=== PATIENT | male | born 1965 | race Caucasian/White ===

== ENCOUNTER 2017-04-06 05:44 | Inpatient (IN) | payer BC ==
[~2017-04-06] VITALS: Ht 175.3 cm; Wt 92.9 kg
[~2017-04-06 05:44] MED LIST: METO1TAB55 PO
[2017-04-06] MEDS ORDERED: MoRPHine SULFATE 4 MG/ML 1 ML CARP\\VIAL IV STA (06:07)
[2017-04-06] MEDS ORDERED: ONDANSETRON INJ 2 MG/ML 2 ML VIAL IV STA (06:07)
[2017-04-06 06:15] LABS: BASO % 0.2 %; BASO ABS # 0.03 K/uL (0-0.2); COMPLETE YES; EOS % 0.5 %; HEMATOCRIT 46.4 % (42-52); IG% 0.4 %; LYMPH % 8.7 %; LYMPH ABS # 1.47 K/uL (1.2-3.4); MEAN CELL VOLUME 87.2 fL (80-100); MEAN CORPUSCULAR HEMOGLOBIN 32.1 pg (25-34); MEAN CORPUSCULAR HGB CONC 36.9 g/dl (32-36); MEAN PLATELET VOLUME 10.9 fL (7.4-10.4); MONO % 5.4 %; NEUT % 84.8 %; PLATELET COUNT 222 K/uL (130-400); RED BLOOD COUNT 5.32 M/uL (4.7-6.1); WHITE BLOOD COUNT 16.87 K/uL (4.8-10.8)
--- NOTE | 2017-04-06 06:31 | DIAGNOSTIC IMAGING REPORT ---
ABDOMEN 2VIEW W/PA CHEST RTN CLINICAL HISTORY: abd pain, ? SBO COMPARISON STUDY: 04/05/2017 FINDINGS: Several mildly distended small bowel in the proximal to mid abdomen. An unremarkable amount of gas and fecal material is identified within the colon. Lungs are clear. Diaphragms are smooth. IMPRESSION: Partial small bowel obstruction. The above report was generated using voice recognition software. It may contain grammatical, syntax or spelling errors. Electronically signed by: Dmitry Lozano M.D. 04/06/2017 6:30 AM Dictated Date/Time: 04/06/2017 6:29 AM
[2017-04-06] MEDS ORDERED: SODIUM CHLORIDE 0.9% 1000ML 1,000 ML IV STA ×2 (06:35)
[2017-04-06 06:47] LABS: ALKALINE PHOSPHATASE 78 U/L (45-117); ALT/SGPT 30 U/L (12-78); AST/SGOT 20 U/L (15-37); BLOOD UREA NITROGEN 16 mg/dl (7-18); BUN/CREATININE RATIO 13.3 (10-20); CALCIUM 9.8 mg/dl (8.5-10.1); CARBON DIOXIDE 26 mmol/L (21-32); CHLORIDE 107 mmol/L (98-107); CREATININE 1.23 mg/dl (0.60-1.40); GLUCOSE 124 mg/dl (70-99); POTASSIUM 3.8 mmol/L (3.5-5.1); SODIUM 142 mmol/L (136-145)
--- NOTE | 2017-04-06 07:20 | EMERGENCY ROOM VISIT NOTE ---
History First contact with patient: 06:07 Chief Complaint: VOMITING Stated Complaint: VOMITING Nursing Triage Summary: Pt reports seen here last night, feeling worse. Emesis x 3 in the last hour. Upper abd pain. History of Present Illness The patient is a 51 year old male who presents to the Emergency Room with complaints of worsening lower abdominal pain described as cramping, ranging in severity currently 9 out of 10. Nothing makes it better or worse. He's had an appendectomy before. He complains of nausea and vomiting. Patient denies chest pain, dyspnea, fever, chills, cough, congestion, back pain, urinary symptoms. No history of bowel obstruction in the past. He was seen here yesterday and had a CT scan that showed possible partial bowel obstruction versus ileus. He tried stool softeners with no improvement of symptoms. Review of Systems See HPI for pertinent positives & negatives. A total of 10 systems reviewed and were otherwise negative. Past Medical/Surgical History Medical Problems: (1) Fracture of mandible (2) HYPERTENSION NOS Appendectomy Social History Smoking Status: Never Smoker Alcohol Use: occasionally Marital Status: single Occupation Status: employed Current/Historical Medications Scheduled Metoclopramide Hcl (Reglan), 1 TAB PO QID Physical Exam Vital Signs Date Time Temp Pulse Resp B/P (MAP) Pulse Ox O2 Delivery O2 Flow Rate FiO2 04/06/17 06:16 Room Air 04/06/17 05:49 37.2 91 20 123/83 100 Room Air Physical Exam VITALS: Vitals are noted on the nurse's note and reviewed by myself. Vital signs stable. GENERAL: Pleasant male pacing in obvious pain, nondiaphoretic, well-developed well-nourished. SKIN: The skin was without rashes, erythema, edema, or bruising. There is no tenting of the skin. Capillary reflex less than 2 seconds. HEAD: Normocephalic atraumatic. EARS: External auditory canals clear, tympanic membranes pearly mercedes without erythema or effusion bilaterally. EYES: Pupils equal round and reactive to light and accommodation. Conjunctivae without injection, sclerae without icterus. Extraocular movements intact. NOSE: Patent, turbinates without inflammation or discharge. MOUTH: Mucous membranes moist. Pharynx without erythema or exudate. Uvula midline. Airway patent. Tongue does not deviate. NECK: Supple without nuchal rigidity. No lymphadenopathy. No thyromegaly. Cervical spine is nontender. No JVD. HEART: Regular rate and rhythm without murmurs gallops or rubs. LUNGS: Clear to auscultation bilaterally without wheezes, rales or rhonchi. No dullness to percussion. No retractions or accessory muscle use. ABDOMEN: Positive bowel sounds x 4. Normal tympanic percussion. Soft, tender to palpation lower abdomen, no CVA tenderness, without masses or organomegaly. Waite sign negative. No guarding or rebound tenderness. MUSCULOSKELETAL: No muscle atrophy, erythema, or edema noted. NEURO: Patient was alert and oriented to person place and time. Normal sensation to light and sharp touch. No focal neurological deficits. Medical Decision & Procedures Laboratory Results 04/06/17 06:00 Red Blood Count 5.32, Mean Corpuscular Volume 87.2, Mean Corpuscular Hemoglobin 32.1, Mean Corpuscular Hemoglobin Concent 36.9, Mean Platelet Volume 10.9, Neutrophils (%) (Auto) 84.8, Lymphocytes (%) (Auto) 8.7, Monocytes (%) (Auto) 5.4, Eosinophils (%) (Auto) 0.5, Basophils (%) (Auto) 0.2, Neutrophils # (Auto) 14.32, Lymphocytes # (Auto) 1.47, Monocytes # (Auto) 0.91, Eosinophils # (Auto) 0.08, Basophils # (Auto) 0.03 04/06/17 06:00 Test 04/06/17 06:00 White Blood Count 16.87 K/uL (4.8-10.8) Red Blood Count 5.32 M/uL (4.7-6.1) Hemoglobin 17.1 g/dL (14.0-18.0) Hematocrit 46.4 % (42-52) Mean Corpuscular Volume 87.2 fL (80-100) Mean Corpuscular Hemoglobin 32.1 pg (25-34) Mean Corpuscular Hemoglobin Concent 36.9 g/dl (32-36) Platelet Count 222 K/uL (130-400) Mean Platelet Volume 10.9 fL (7.4-10.4) Neutrophils (%) (Auto) 84.8 % Lymphocytes (%) (Auto) 8.7 % Monocytes (%) (Auto) 5.4 % Eosinophils (%) (Auto) 0.5 % Basophils (%) (Auto) 0.2 % Neutrophils # (Auto) 14.32 K/uL (1.4-6.5) Lymphocytes # (Auto) 1.47 K/uL (1.2-3.4) Monocytes # (Auto) 0.91 K/uL (0.11-0.59) Eosinophils # (Auto) 0.08 K/uL (0-0.5) Basophils # (Auto) 0.03 K/uL (0-0.2) RDW Standard Deviation 39.8 fL (36.4-46.3) RDW Coefficient of Variation 12.5 % (11.5-14.5) Immature Granulocyte % (Auto) 0.4 % Immature Granulocyte # (Auto) 0.06 K/uL (0.00-0.02) Anion Gap 9.0 mmol/L (3-11) Est Creatinine Clear Calc Drug Dose 79.1 ml/min Estimated GFR () 77.7 Estimated GFR (Non- 67.1 BUN/Creatinine Ratio 13.3 (10-20) Calcium Level 9.8 mg/dl (8.5-10.1) Total Bilirubin 0.9 mg/dl (0.2-1) Direct Bilirubin mg/dl (0-0.2) Aspartate Amino Transf (AST/SGOT) 20 U/L (15-37) Alanine Aminotransferase (ALT/SGPT) 30 U/L (12-78) Alkaline Phosphatase 78 U/L (45-117) Total Protein 7.8 gm/dl (6.4-8.2) Albumin 4.0 gm/dl (3.4-5.0) Lipase 151 U/L (73-393) Medications Administered Medications (Trade) Dose Ordered Sig/Sadie Route Start Time Stop Time Status Last Admin Dose Admin Morphine Sulfate (MoRPHine SULFATE INJ) 4 mg NOW STAT IV 04/06/17 06:07 04/06/17 06:08 DC 04/06/17 06:21 4 MG Ondansetron HCl (Zofran Inj) 4 mg NOW STAT IV 04/06/17 06:07 04/06/17 06:08 DC 04/06/17 06:21 4 MG Sodium Chloride 1,000 ml @ 999 mls/hr Q1H1M STAT IV 04/06/17 06:35 04/06/17 07:35 04/06/17 06:44 999 MLS/HR ED Course Prior records/ancillary studies reviewed. Triage Nursing notes reviewed. Additional history obtained from family The patient's history was concerning for abdominal pain. Differential diagnosis: Etiologies such as appendicitis, diverticulitis, PUD, biliary pathology, UTI, pancreatitis, obstruction, mesenteric ischemia, aortic pathology, infections, inflammatory bowel disease, renal colic, as well as others were entertained. Physical examination findings: As above. ER treatment provided: Morphine, Zofran, IV fluids On reassessment the patient felt better. Diagnostics interpreted by me: The labs revealed leukocytosis, stable H&H Imaging studies: COMPARISON STUDY: 01/18/2013 FINDINGS: Lung bases are clear. Liver spleen and pancreas are unremarkable. Gallbladder is negative for distention. The adrenal glands are normal. Kidneys are negative for calcification or significant hydronephrosis. There is slight prominence of the left renal pelvis. There is a 1.5 mm nonobstructing calcification lower aspect left kidney. There is no evidence for an obstructing urinary tract calculus. Several fluid-filled loops of small bowel are present suggesting ileus versus partial small bowel obstruction. Patient is status post prior appendectomy. A sending transverse colon as are unremarkable. Descending colon shows evidence for a component of chronic diverticulosis. There is no evidence for acute diverticulitis. Bladder is midline. There multiple pelvic vascular calcifications. IMPRESSION: 1. No evidence for an obstructing urinary tract calculus. 2. Small punctate nonobstructing lower pole left renal calcification. 3. Moderate small bowel ileus versus the less likely possibility of a partial small bowel obstructive pattern. 4. Chronic descending and to lesser extent sigmoid diverticulosis. The small bowel ileus potentially is reactive based on this finding. 5. No evidence for abscess or collection. 6. Prior appendectomy. The above report was generated using voice recognition software. It may contain grammatical, syntax or spelling errors. ABDOMEN 2VIEW W/PA CHEST RTN CLINICAL HISTORY: abd pain, ? SBO COMPARISON STUDY: 04/05/2017 FINDINGS: Several mildly distended small bowel in the proximal to mid abdomen. An unremarkable amount of gas and fecal material is identified within the colon. Lungs are clear. Diaphragms are smooth. IMPRESSION: Partial small bowel obstruction. Electronically signed by: Dmitry Lozano M.D. Consultation: A consultation was placed with the surgeon, Dr. Rivera and recommends medical admission and he will be consulted. I spoke to the [facility] hospitalist, Dr. Griffin. The case was discussed and diagnostics were reviewed. The patient was evaluated in the ER for further treatment. Exam and history seem consistent with small bowel obstruction. Patient had a CT scan yesterday and was sent home. Stool softeners made symptoms worsen and came back. Acute abdominal series is concerning for partial small bowel obstruction. Medicine will evaluate the patient for possible admission. Surgery was consulted. By the evaluation outlined above emergent etiologies such as appendicitis, diverticulitis, PUD, biliary pathology, UTI, pancreatitis, mesenteric ischemia , aortic pathology, infections, inflammatory bowel disease, renal colic, as well as others were deemed relatively unlikely. The pt informed about the findings as listed above. All questions were answered and pleased with the treatment. Case reviewed with my attending. Medical Decision As above Medication Reconcilliation Current Medication List: was personally reviewed by me Blood Pressure Screening Patient's blood pressure: Normal blood pressure Impression Primary Impression: Small bowel obstruction Departure Information Dispostion Being Evaluated By Hospitalist Condition GOOD Referrals Eladio Skelton M.D. (PCP) Patient Instructions My [facility]
[2017-04-06] MEDS ORDERED: MoRPHine SULFATE 2 MG/ML CARP IV PRN (07:30)
[2017-04-06] MEDS ORDERED: ONDANSETRON INJ 2 MG/ML 2 ML VIAL IV PRN (07:30)
[2017-04-06 07:35] VITALS: O2SAT 100; Ht 175.3 cm; Wt 92.9 kg
[2017-04-06 08:12] VITALS: O2SAT 98
[2017-04-06 08:24] VITALS: BP 126/82; PULSE 78; TEMP 36.4; O2SAT 94
--- NOTE | 2017-04-06 08:44 | History and Physical ---
History & Physical Date & Time of Service: Apr 06, 2017 at 08:41 Chief Complaint: Partial Small Bowel Obstruction Primary Care Physician: Eladio Skelton M.D. History of Present Illness Patient returns to the ER after attempts of using laxatives at home to relieve his partial small bowel obstruction, one day prior to admission he presented with abdominal pain nausea he had a CT scan and plain x-ray are consistent with an ileus versus partial small bowel obstruction he was sent home with promotility agents and laxatives. The patient had voluminous dark emesis and increased abdominal pain he self admits to drinking large amounts of water. He re-presents to the ER is recommended for intake. He does have a history of previously having an appendectomy. His lab abnormalities only include a leukocytosis. His is at the bedside and understands need for addition Past Medical/Surgical History Medical Problems: (1) Fracture of mandible Status: Resolved (2) HYPERTENSION NOS Status: Chronic Social History Smoking Status: Never Smoker Smokeless Tobacco Use: No Alcohol Use: socially Marital Status: single Occupational Status: employed Immunizations History of Influenza Vaccine: Yes History of Tetanus Vaccine?: Yes History of Pneumococcal: No History of Hepatitis B Vaccine: No Allergies Coded Allergies: Amoxicillin (Unverified Allergy, Unknown, HIVES, 04/05/17) Home Medications Scheduled Metoclopramide Hcl (Reglan), 1 TAB PO QID Review of Systems ROS: well nourished well developed No double vision blurry vision No problems with speech or swallowing No palpitations, chest pain or pressure No Wheezing or breathing issues Central abdominal pain plus nausea vomiting (black liquid) but no diarrhea and no changes in appetite or weight No burning urine urine frequency or changes in color No focal joint pain or muscle pain but history of arthritis No skin rashes or oral lesions No unusual bruising or bleeding No focused back pain or numbness or loss of strength No changes in memory or confusion Physical Exam Vital Signs Date Time Temp Pulse Resp B/P (MAP) Pulse Ox O2 Delivery O2 Flow Rate FiO2 04/06/17 08:12 82 16 135/79 98 04/06/17 07:46 95 Nasal Cannula 2.0 04/06/17 07:35 100 Room Air 04/06/17 07:14 83 16 128/77 89 Room Air 04/06/17 06:16 Room Air 04/06/17 05:49 37.2 91 20 123/83 100 Room Air General Appearance: WD/WN, + mild distress Head: normocephalic, atraumatic Eyes: PERRL, EOMI Respiratory/Chest: chest non-tender, lungs clear, normal breath sounds Cardiovascular: regular rate, rhythm, normal peripheral pulses Abdomen/GI: soft, + abnormal bowel sounds (hypoactive), + distended, + guarding Back: no CVA tenderness, no muscle spasm Extremities/Musculoskelatal: no pedal edema, normal range of motion Neurologic/Psych: alert, oriented x 3 Skin: normal color, warm/dry, no rash Diagnostics Laboratory Results Results Past 24 Hours Test 04/06/17 06:00 Range/Units White Blood Count 16.87 4.8-10.8 K/uL Red Blood Count 5.32 4.7-6.1 M/uL Hemoglobin 17.1 14.0-18.0 g/dL Hematocrit 46.4 42-52 % Mean Corpuscular Volume 87.2 80-100 fL Mean Corpuscular Hemoglobin 32.1 25-34 pg Mean Corpuscular Hemoglobin Concent 36.9 32-36 g/dl Platelet Count 222 130-400 K/uL Mean Platelet Volume 10.9 7.4-10.4 fL Neutrophils (%) (Auto) 84.8 % Lymphocytes (%) (Auto) 8.7 % Monocytes (%) (Auto) 5.4 % Eosinophils (%) (Auto) 0.5 % Basophils (%) (Auto) 0.2 % Neutrophils # (Auto) 14.32 1.4-6.5 K/uL Lymphocytes # (Auto) 1.47 1.2-3.4 K/uL Monocytes # (Auto) 0.91 0.11-0.59 K/uL Eosinophils # (Auto) 0.08 0-0.5 K/uL Basophils # (Auto) 0.03 0-0.2 K/uL RDW Standard Deviation 39.8 36.4-46.3 fL RDW Coefficient of Variation 12.5 11.5-14.5 % Immature Granulocyte % (Auto) 0.4 % Immature Granulocyte # (Auto) 0.06 0.00-0.02 K/uL Sodium Level 142 136-145 mmol/L Potassium Level 3.8 3.5-5.1 mmol/L Chloride Level 107 98-107 mmol/L Carbon Dioxide Level 26 21-32 mmol/L Anion Gap 9.0 3-11 mmol/L Blood Urea Nitrogen 16 7-18 mg/dl Creatinine 1.23 0.60-1.40 mg/dl Est Creatinine Clear Calc Drug Dose 79.1 ml/min Estimated GFR () 77.7 Estimated GFR (Non- 67.1 BUN/Creatinine Ratio 13.3 10-20 Random Glucose 124 70-99 mg/dl Calcium Level 9.8 8.5-10.1 mg/dl Total Bilirubin 0.9 0.2-1 mg/dl Direct Bilirubin 0-0.2 mg/dl Aspartate Amino Transf (AST/SGOT) 20 15-37 U/L Alanine Aminotransferase (ALT/SGPT) 30 12-78 U/L Alkaline Phosphatase 78 45-117 U/L Total Protein 7.8 6.4-8.2 gm/dl Albumin 4.0 3.4-5.0 gm/dl Lipase 151 73-393 U/L Diagnostic Radiology Abdominal x-ray consistent with ileus versus partial small bowel obstruction Impression Assessment and Plan 51-year-old male with previous history of appendectomy presents with partial small bowel structure failing conservative therapy Admission for bowel rest hydration pain and nausea control surgical consultation With description of black emesis will place on Protonix IV With leukocytosis will place on cefoxitin DVD preventions heparin Advanced Directives Existing Living Will: No Existing Power of Nut Dehydrator Operator: No VTE Prophylaxis VTE Risk Assessment Done? Y/N: Yes Risk Level: Moderate
[2017-04-06] MEDS ORDERED: CEFOXITIN IV 1,000 MG in DEXTROSE 5% 50ML 50 ML IV SCH (10:00)
[2017-04-06 10:04] LABS: PROTHROMBIN TIME (PATIENT) 10.9 SECONDS (9.0-12.0)
[2017-04-06] MEDS: NSS + 20MEQ KCL 1000ML 1,000 ML IV SCH ×3 (10:11→23:41)
[2017-04-06] MEDS: PANTOprazole INJ 40 MG in SYRINGE 0 ML IV SCH ×2 (10:12→20:31)
[2017-04-06] MEDS: MoRPHine SULFATE 4 MG/ML 1 ML CARP\\VIAL IV PRN ×2 (10:16→14:33)
[2017-04-06] MEDS: HEPARIN SOD 5000 UNIT/0.5 ML CARP SQ SCH ×2 (10:20→20:32)
[2017-04-06] MEDS: METRONIDAZOLE / NSS 500 MG in PREMIXED NSS 100 ML IV SCH ×2 (10:37→18:19)
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
[2017-04-06] MEDS: CIPROFLOXACIN / D5W 400 MG in PREMIXED IN D5W 200 ML IV SCH ×2 (11:12→22:30)
[2017-04-06 15:49] VITALS: BP 114/74; PULSE 70; TEMP 36.8; O2SAT 94
[2017-04-06 22:53] VITALS: BP 116/78; PULSE 77; TEMP 36.8; O2SAT 93
[2017-04-07] MEDS: METRONIDAZOLE / NSS 500 MG in PREMIXED NSS 100 ML IV SCH ×2 (01:49→09:33)
[2017-04-07 06:15] LABS: BUN/CREATININE RATIO 11.9 (10-20); CALCIUM 8.1 mg/dl (8.5-10.1); CREATININE 1.03 mg/dl (0.60-1.40); MAGNESIUM 1.8 mg/dl (1.8-2.4); POTASSIUM 3.9 mmol/L (3.5-5.1)
[2017-04-07 07:03] VITALS: BP 114/73; PULSE 75; TEMP 36.6; O2SAT 95
[2017-04-07 07:33] LABS: HEMATOCRIT 38.3 % (42-52); MEAN CELL VOLUME 88.2 fL (80-100); MEAN CORPUSCULAR HEMOGLOBIN 30.9 pg (25-34); MEAN PLATELET VOLUME 11.2 fL (7.4-10.4); PLATELET COUNT 180 K/uL (130-400); RED BLOOD COUNT 4.34 M/uL (4.7-6.1); WHITE BLOOD COUNT 6.69 K/uL (4.8-10.8)
--- NOTE | 2017-04-07 09:27 | DIAGNOSTIC IMAGING REPORT ---
ABDOMEN 2 VIEWS CLINICAL HISTORY: Abdominal pain. Small bowel obstruction. COMPARISON STUDY: 04/06/2017 FINDINGS: There are multiple dilated central abdominal small bowel loops measuring up to 49 mm in diameter. There are air-fluid levels on the erect study. There is a possibility of colonic gas. The findings are consistent with a small bowel obstruction. IMPRESSION: Persistent small bowel obstructive pattern Electronically signed by: Michael Garrison M.D. 04/07/2017 9:26 AM Dictated Date/Time: 04/07/2017 9:25 AM
[2017-04-07] MEDS: PANTOprazole INJ 40 MG in SYRINGE 0 ML IV SCH (09:32)
[2017-04-07] MEDS: NSS + 20MEQ KCL 1000ML 1,000 ML IV SCH (09:33)
[2017-04-07] MEDS: HEPARIN SOD 5000 UNIT/0.5 ML CARP SQ SCH (09:40)
[2017-04-07] MEDS ORDERED: ACETAMINOPHEN IV 650 MG in EMPTY BAG 0 ML IV PRN (09:45)
--- NOTE | 2017-04-07 10:08 | Surgery Progress Note ---
Surgery Progress Note Date of Service Apr 07, 2017. Subjective + pain controlled, No complaints, No bowel movement, No nausea, No vomiting Patient sitting up in bed with spouse at bedside. No concerns overnight. Mild headache this AM. Objective Vital Signs: Date Time Temp Pulse Resp B/P (MAP) Pulse Ox O2 Delivery O2 Flow Rate FiO2 04/07/17 08:00 Room Air 04/07/17 07:03 36.6 75 19 114/73 (87) 95 Room Air 04/06/17 23:54 Room Air 04/06/17 22:53 36.8 77 16 116/78 (91) 93 Room Air 04/06/17 15:49 36.8 70 18 114/74 (87) 94 Room Air 04/06/17 15:20 Room Air General Appearance: WD/WN, no apparent distress Head: normocephalic, atraumatic Abdomen: non tender, soft, + pertinent finding Laboratory Results: Results Past 24 Hours Test 04/07/17 05:26 Range/Units White Blood Count 6.69 4.8-10.8 K/uL Red Blood Count 4.34 4.7-6.1 M/uL Hemoglobin 13.4 14.0-18.0 g/dL Hematocrit 38.3 42-52 % Mean Corpuscular Volume 88.2 80-100 fL Mean Corpuscular Hemoglobin 30.9 25-34 pg Mean Corpuscular Hemoglobin Concent 35.0 32-36 g/dl RDW Standard Deviation 39.3 36.4-46.3 fL RDW Coefficient of Variation 12.3 11.5-14.5 % Platelet Count 180 130-400 K/uL Mean Platelet Volume 11.2 7.4-10.4 fL Sodium Level 142 136-145 mmol/L Potassium Level 3.9 3.5-5.1 mmol/L Chloride Level 109 98-107 mmol/L Carbon Dioxide Level 28 21-32 mmol/L Anion Gap 5.0 3-11 mmol/L Blood Urea Nitrogen 12 7-18 mg/dl Creatinine 1.03 0.60-1.40 mg/dl Est Creatinine Clear Calc Drug Dose 94.5 ml/min Estimated GFR () 96.3 Estimated GFR (Non- 83.1 BUN/Creatinine Ratio 11.9 10-20 Random Glucose 92 70-99 mg/dl Calcium Level 8.1 8.5-10.1 mg/dl Magnesium Level 1.8 1.8-2.4 mg/dl ABDOMEN 2 VIEWS CLINICAL HISTORY: Abdominal pain. Small bowel obstruction. COMPARISON STUDY: 04/06/2017 FINDINGS: There are multiple dilated central abdominal small bowel loops measuring up to 49 mm in diameter. There are air-fluid levels on the erect study. There is a possibility of colonic gas. The findings are consistent with a small bowel obstruction. IMPRESSION: Persistent small bowel obstructive pattern Electronically signed by: Michael Garrison M.D. 04/07/2017 9:26 AM Dictated Date/Time: 04/07/2017 9:25 AM Assessment & Plan 51-year-old male with small bowel obstruction Reviewed abdominal x-ray from this AM. Patient reports that he is feeling better since admission. Pain controlled. Diet advanced to full liquids- tolerating well, no nausea or vomiting. Will continue to follow along.
--- NOTE | 2017-04-07 10:36 | Hospitalist Progress Note ---
Hospitalist Progress Note Date of Service Apr 07, 2017. Subjective Pt evaluation today including: conversation w/ patient, physical exam, chart review, lab review, review of studies, review of inpatient medication list Voiding: no voiding problems Mr. Bal feels much better this morning. He has not had any nausea or vomiting today and tolerating full liquids this morning. He also had a bowel movement this morning. He does have some left upper quadrant tenderness. Constitutional: no chills, aches, sweats or fever Respiratory: no sob,cough, sputum, or wheezing Cardiac: no chest pain, palpitations, edema, orthopnea or lightheadedness GI: see HPI : no dysuria or hesitancy Extremities: no joint pain or weakness Skin: no rash All Other Systems: Reviewed and Negative Medications Medications Administered Medications (Trade) Dose Ordered Sig/Sadie Route Start Time Stop Time Status Last Admin Dose Admin Morphine Sulfate (MoRPHine SULFATE INJ) 4 mg NOW STAT IV 04/06/17 06:07 04/06/17 06:08 DC 04/06/17 06:21 4 MG Ondansetron HCl (Zofran Inj) 4 mg NOW STAT IV 04/06/17 06:07 04/06/17 06:08 DC 04/06/17 06:21 4 MG Sodium Chloride 1,000 ml @ 999 mls/hr Q1H1M STAT IV 04/06/17 06:35 04/06/17 07:35 DC 04/06/17 06:44 999 MLS/HR Heparin Sodium (Porcine) (Heparin Sq 5000 Unit/0.5ml) 5,000 unit Q12@0900,2100 SQ 04/06/17 10:00 05/06/17 09:59 04/07/17 09:40 5,000 UNIT Potassium Chloride/Sodium Chloride 1,000 ml @ 100 mls/hr Q10H IV 04/06/17 10:00 05/06/17 07:29 04/07/17 09:33 100 MLS/HR Morphine Sulfate (MoRPHine SULFATE INJ) 4 mg Q4H PRN IV 04/06/17 07:30 04/20/17 07:29 04/06/17 14:33 4 MG Pantoprazole Sodium 40 mg/ Syringe 10 ml @ 5 mls/min Q12@0900,2100 IV 04/06/17 10:00 05/06/17 09:59 04/07/17 09:32 5 MLS/MIN Ciprofloxacin/ Dextrose 400 mg/ Prmx 200 ml @ 100 mls/hr Q12H IV 04/06/17 11:00 04/16/17 10:59 04/06/17 22:30 100 MLS/HR Metronidazole 500 mg/Prmx 100 ml @ 100 mls/hr Q8H IV 04/06/17 10:00 04/16/17 09:59 04/07/17 09:33 100 MLS/HR Objective Vital Signs Date Time Temp Pulse Resp B/P (MAP) Pulse Ox O2 Delivery O2 Flow Rate FiO2 04/07/17 08:00 Room Air 04/07/17 07:03 36.6 75 19 114/73 (87) 95 Room Air 04/06/17 23:54 Room Air 04/06/17 22:53 36.8 77 16 116/78 (91) 93 Room Air 04/06/17 15:49 36.8 70 18 114/74 (87) 94 Room Air 04/06/17 15:20 Room Air Physical Exam Notes: General: no distress Eyes: normal inspection, PERLL Respiratory: chest non tender, clear to auscultation, normal breath sounds, no respiratory distress, no accessory muscle use Cardiac: regular rate and rhythm, no rub or gallop, no murmur, no edema, no jvd GI/: active bowel sounds,LUQ tender to palpation, soft, non distended Extremities: normal range of motion, normal strength, non tender Neuro/Psych: drowsy and oriented x 3, normal mood and affect Skin: normal color, dry Laboratory Results Last 24 Hours Test 04/07/17 05:26 White Blood Count 6.69 K/uL Red Blood Count 4.34 M/uL Hemoglobin 13.4 g/dL Hematocrit 38.3 % Mean Corpuscular Volume 88.2 fL Mean Corpuscular Hemoglobin 30.9 pg Mean Corpuscular Hemoglobin Concent 35.0 g/dl RDW Standard Deviation 39.3 fL RDW Coefficient of Variation 12.3 % Platelet Count 180 K/uL Mean Platelet Volume 11.2 fL Sodium Level 142 mmol/L Potassium Level 3.9 mmol/L Chloride Level 109 mmol/L Carbon Dioxide Level 28 mmol/L Anion Gap 5.0 mmol/L Blood Urea Nitrogen 12 mg/dl Creatinine 1.03 mg/dl Est Creatinine Clear Calc Drug Dose 94.5 ml/min Estimated GFR () 96.3 Estimated GFR (Non- 83.1 BUN/Creatinine Ratio 11.9 Random Glucose 92 mg/dl Calcium Level 8.1 mg/dl Magnesium Level 1.8 mg/dl Assessment and Plan 51-year-old male with previous history of appendectomy presents with partial small bowel obstruction failing conservative therapy SBO - diet advanced per surgery to full liquid - tolerating well - Abd x ray today shows continued SBO upper left quadrant Leukocytosis - ? diverticulitis - per surgery presentation is consistent with - continue abx With description of black emesis will place on Protonix IV DVD preventions heparin
[2017-04-07] MEDS: CIPROFLOXACIN / D5W 400 MG in PREMIXED IN D5W 200 ML IV SCH (11:54)
[2017-04-07] MEDS ORDERED: METR500T PO (14:00)
[2017-04-07] MEDS ORDERED: CPR500 PO (14:00)
--- NOTE | 2017-04-07 14:15 | Discharge Instructions ---
Discharge Instructions Date of Service Apr 07, 2017. Admission Reason for Admission: Partial Small Bowel Obstruction Discharge Discharge Diagnosis / Problem: Partial small bowel obstruction, diverticulitis Discharge Goals Goal(s): Decrease discomfort, Improve disease control Activity Recommendations Activity Limitations: resume your previous activity Driving or Machine Use: no limitations . Instructions / Follow-Up Instructions / Follow-Up Please follow up with Cesia Oliva PA-C on April 14 at 1:30 Please get lab work on 04/09, results to Cesia Oliva Current Hospital Diet Patient's current hospital diet: Full Liquid Diet Discharge Diet Recommended Diet: Full Liquid Diet (Advance to low fiber/low fat diet as tolerated. ) Procedures Procedures Performed: Abdomen/chest xray Chest x ray Pending Studies Studies pending at discharge: no Medical Emergencies . Who to Call and When: Medical Emergencies: If at any time you feel your situation is an emergency, please call 911 immediately. . Non-Emergent Contact Non-Emergency issues call your: Primary Care Provider Call Non-Emergent contact if: you have a fever, your pain is not controlled, your pain is worsening . Past History Medical & Surgical History: (1) Small bowel obstruction (2) Diverticulitis . "Provider Documentation" section prepared by Viviana Skelton. . VTE Core Measure Inpt VTE Proph given/why not?: Treatment not indicated
--- NOTE | 2017-04-07 14:29 | Discharge Summary ---
Discharge Summary Date of Service Apr 07, 2017. (Viviana Skelton CRNP) Discharge Summary Admission Date: Apr 06, 2017 at 07:33 Discharge Date: Apr 07, 2017 Discharge Disposition: Home Principal Diagnosis: Partial small bowel obstruction, diverticulitis Immunizations: Have You Had Influenza Vaccine: Yes History of Tetanus Vaccine?: Yes History of Pneumococcal: No History of Hepatitis B Vaccine: No Procedures: 2 view abdomen IMPRESSION: Persistent small bowel obstructive pattern Chest/abdomen x ray IMPRESSION: Partial small bowel obstruction. Consultations: Dr. Rivera from Gen Surg (Viviana Skelton CRNP) Medication Reconciliation New Medications: Ciprofloxacin (Ciprofloxacin HCl) 500 Mg Tab 500 MG PO BID for 6 Days, #11 DOSE Metronidazole (Flagyl) 500 Mg Tab 500 MG PO TID for 6 Days, #19 TAB Pantoprazole (Protonix) 40 Mg Tab 40 MG PO DAILY, #30 TAB Discontinued Medications: Metoclopramide Hcl (Reglan) 10 Mg Tab 1 TAB PO QID for 30 Days, #120 TAB Discharge Exam ROS Constitutional: no chills, aches, sweats or fever Respiratory: no sob,cough, sputum, or wheezing Cardiac: no chest pain, palpitations, edema, orthopnea or lightheadedness GI: no abdominal pain, nausea, vomiting, diarrhea or constipation : no dysuria or hesitancy Extremities: no joint pain or weakness Skin: no rash PE General: no distress Eyes: normal inspection, PERLL Respiratory: chest non tender, clear to auscultation, normal breath sounds, no respiratory distress, no accessory muscle use Cardiac: regular rate and rhythm, no rub or gallop, no murmur, no edema, no jvd GI/: active bowel sounds,mild tenderness left upper quadrant, soft, non distended Extremities: normal range of motion, normal strength, non tender Neuro/Psych: alert and oriented x 3, normal mood and affect Skin: normal color, dry (Vviiana Skelton CRNP) Hospital Course Patient returned to the ER 04/06 after attempts of using laxatives at home to relieve his partial small bowel obstruction, one day prior to admission he had presented to the ED with abdominal pain and nausea. He had a CT scan and plain x-ray consistent with an ileus versus partial small bowel obstruction and he was sent home with promotility agents and laxatives. The patient had voluminous dark emesis and increased abdominal pain. He admitted to drinking large amounts of water. He does have a history of previously having an appendectomy. His lab abnormalities only include a leukocytosis. SBO - diet advanced per surgery to full liquid - tolerated well - to discharge home with instruction to advance diet to low fiber/low fat as tolerated until seen by primary care - Abd x ray 04/06 showed continued SBO upper left quadrant Leukocytosis - ? diverticulitis - per surgery presentation is consistent with though his imaging did not clearly show - will discharge with cipro and flagyl for a total of a 7 day course With description of black emesis he received Protonix IV - discharged with po protonix 40 mg daily DVD preventions heparin Total Time Spent: Less than 30 minutes This includes examination of the patient, discharge planning, medication reconciliation, and communication with other providers. (Viviana Skelton CRNP) MONUMENTAL [employer]ONEM[employer] Physician Supervision Note: I interviewed and examined the patient. Discussed with Viviana Skelton MONUMENTAL STONEMASON and agree with findings and plan as documented in the note. Any exceptions or clarifications are listed here: None Patient has improved dramatically overnight feel to tolerate food no pain and had a bowel movement Vital signs are stable abdominal exam is only with very minor discomfort mostly in the left side of his abdomen cards regular lungs are clear Improved abdominal pain and ileus continue antibiotics to treat full course for diverticulitis recommend follow-up with primary care in 1 week Documented By: Taras Patricio (Taras Patricio M.D.) Discharge Instructions Please refer to the electronic Patient Visit Report (Discharge Instructions) for additional information. (Viviana Skelton CRNP) Follow-Up Cesia Oliva 04/14 1:30 (Viviana Skelton CRNP)
[2017-04-07] MEDS ORDERED: PANT1TAB48 PO (14:30)
[2017-04-07 14:34] VITALS: BP 114/73; PULSE 75; TEMP 36.6; O2SAT 95
[2017-04-07] MEDS ORDERED: METRONIDAZOLE 500 MG TAB PO SCH (21:00)
[2017-04-07] MEDS ORDERED: CIPROFLOXACIN 500 MG TAB PO SCH (21:00)
== END 2017-04-07 15:43 | disposition home or self-care (01) | DRG 389 ==
LOC: C.EDB 05:45 → C.MSN 07:33 → ENRESERV 08:00
PROVIDERS: ADMIT Internal Medicine; ATTEND Internal Medicine
DX: K56.609 Unspecified intestinal obstruction, unspecified as to partial versus complete obstruction (principal); K57.92 Diverticulitis of intestine, part unspecified, without perforation or abscess without bleeding; I10 Essential (primary) hypertension; D72.829 Elevated white blood cell count, unspecified; K56.7 Ileus, unspecified; R10.9 Unspecified abdominal pain; M54.9 Dorsalgia, unspecified

== ENCOUNTER → 2018-01-12 | Outpatient (CLI) | payer OTHER ==
[~2018-01-12] MED LIST changes: +CPR500 PO; -METO1TAB55 PO
--- NOTE | 2018-01-12 09:42 | DIAGNOSTIC IMAGING REPORT ---
GI SERIES W/AIR ROUTINE CLINICAL HISTORY: GERD without esophagitis. COMPARISON STUDY: None. FLUOROSCOPY TIME: 3 minutes. FINDINGS: 17 fluoroscopic images were obtained. Esophageal motility was normal. No esophageal mass or stricture was identified. Gastroesophageal junction was normal. Gastric fold pattern was normal. Duodenum was normal. Caliber of the opacified jejunum is normal. No reflux was elicited. No hiatal hernia was identified. IMPRESSION: Normal double contrast upper GI series. Electronically signed by: Aldo Ramirez M.D. 01/12/2018 9:41 AM Dictated Date/Time: 01/12/2018 9:40 AM
== END | disposition home or self-care (01) ==
LOC: C.RAD 09:02
PROVIDERS: ATTEND Internal Medicine
DX: K21.9 Gastro-esophageal reflux disease without esophagitis (principal)